=== PATIENT | male | born 1995 | race African-American/Black ===

== ENCOUNTER 2018-12-10 11:18 | Inpatient (IN) | payer MEDICAID ==
[~2018-12-10] VITALS: Ht 175.3 cm; Wt 86.0 kg
[2018-12-12 15:21] VITALS: BP 117/81
== END 2018-12-12 17:00 | disposition home or self-care (01) | DRG 132 ==
LOC: ED 14:45 → EDIP 16:09 → 4NOR 17:09 → DCLOUNGE 12-12 16:30
PROVIDERS: ADMIT Family Medicine; ATTEND Family Medicine
PROC: 0NSV04Z Reposition Left Mandible with Internal Fixation Device, Open Approach (ICD-10-PCS; principal; 2018-12-11)
PROC: 0NST04Z Reposition Right Mandible with Internal Fixation Device, Open Approach (ICD-10-PCS; 2018-12-11)
DX: S02.652A Fracture of angle of left mandible, initial encounter for closed fracture (principal); S02.66XB Fracture of symphysis of mandible, initial encounter for open fracture; Y08.89XA Assault by other specified means, initial encounter; Y93.89 Activity, other specified; Y92.89 Other specified places as the place of occurrence of the external cause; Y99.8 Other external cause status
CPT/HCPCS: 36415; 70450; 70486; 80048; 85025; 96374; 96375; 99285; C1713; G0378; J0295; J0690; J1100; J1170; J1885; J2175; J2250; J2405; J2704; J3010; J3490; J0330; J2270